=== PATIENT | female | born 1935 | race Caucasian/White ===

== ENCOUNTER → 2017-08-01 | Day surgery (SDC) | payer OTHER, BC, MEDICARE ==
[~2017-08-01] VITALS: Ht 154.9 cm; Wt 47.2 kg
[~2017-08-01] MED LIST: COUMADIN2 M1 PO; DIGOXIN125 MCG PO; LOSARTAN POTASS50 M1 PO; METOPROLOL TART50 M1 PO; SIMVASTATIN10 M1 PO
[2017-08-01 11:07] LABS: PT 12.1 SEC (9.4-12.5)
--- NOTE | 2017-08-05 17:39 | Proc Note Cardiology ---
Cardiology Procedure Procedure Date: 08/01/17 Cardiology Procedure(s): Pacemaker generator replacement Pre-Operative Diagnosis: tachy-sasha syndrome Post-Operative Diagnosis: same Estimated Blood Loss: scant Anesthesia: Licocaine with moderate sedation Procedure Findings: History: This patient is a 81 year old female with history of hypertension and atrial fibrillation who presents for pacemaker generator replacement for end of life. She has tachy-sasha syndrome. Procedure: This patient was prepped and draped in the usual sterile fashion after having obtained informed consent. She was administered 1 gm of Ancef as prophylaxis against infection. An incision was then made in the right subclavicular space over her previously placed pacemaker. The old pacemaker was extracted using a plasma blade where appropriate. The new pacmaker was then attached to the existing leads and was sewn into place using three layers of absorbable suture. Pacing parameters were again checked and confirmed to be within acceptable, or better, limits. The patient was brought to recovery where a chest X-ray and 12 lead ECG were obtained. Pacemaker: [employer] [place] Pacemaker Model # [id number] with serial # [id number] Ventricular Lead: Model # 4092-52 Serial # [id number] Voltage: 0.5V Current: 0.9mA Impedance: 6602 Ohms R wave: 8.0 The patient tolerated this procedure well without complications.
== END ==
LOC: STS 01:50
PROVIDERS: Internal Medicine Interventional Cardiology
DX: Z45.010 Encounter for checking and testing of cardiac pacemaker pulse generator [battery] (principal); I49.5 Sick sinus syndrome; R00.1 Bradycardia, unspecified; I25.10 Atherosclerotic heart disease of native coronary artery without angina pectoris; I48.91 Unspecified atrial fibrillation; Z79.01 Long term (current) use of anticoagulants; I25.2 Old myocardial infarction; I10 Essential (primary) hypertension; Z87.891 Personal history of nicotine dependence
CPT/HCPCS: 36415; C1786; J0690; J2250; J3370